=== PATIENT | female | born 1955 | race Caucasian/White ===

== ENCOUNTER 2016-06-01 10:06 | Inpatient (IN) | payer BC ==
[2016-05-13 09:40] VITALS: BMI 45.0
--- NOTE | 2016-05-27 23:27 | HISTORY & PHYSICAL EXAMINATION ---
DATE OF ADMISSION: 06/01/2016 CHIEF COMPLAINT: Right knee pain. HISTORY OF PRESENT ILLNESS: The patient is a 60-year-old female who is now about 7 months out from a left knee replacement, presents for surgical treatment of her right knee. She has a long history of bilateral knee pain, discomfort, and actually had her right knee scoped by Dr. Olguin on 2 separate occasions. Did give her some temporary relief. Noticed in the past 6 months she has developed increased pain and discomfort in her right knee since her left knee has been fixed. She has been through extensive conservative treatment including medicines and steroid and viscosupplementation without much relief. Pain is global. It is increased with weightbearing. She is happy with her left knee and would like to have her right knee replaced. PAST MEDICAL HISTORY: Includes: 1. Hypothyroidism. 2. Osteoarthritis. 3. Obesity with a BMI of 45. PAST SURGICAL HISTORY: Includes: 1. Left shoulder surgery. 2. Right knee arthroscopy x2, one in 2002 and one in 2007. 3. Left knee arthroscopy done in 2008. 4. Left total knee replacement done on 12/24/2015. ALLERGIES: None. CURRENT MEDICINES: Include: 1. Synthroid 50 mcg a day. 2. One-a-day multivitamin. 3. Vitamin C. 4. Calcium. 5. Vitamin B6. 6. Potassium. 7. Glucosamine/chondroitin. SOCIAL HISTORY: A 60-year-old female. She lives by herself. Does not smoke. FAMILY HISTORY: Noncontributory. REVIEW OF SYSTEMS: Negative for diabetes, neurologic problems, vascular problems, bleeding disorders. Denies any chest pain, no shortness of breath. No history of DVT or PE. PHYSICAL EXAMINATION: GENERAL: Reveals a healthy, pleasant middle-aged female. She looks to be in good health. HEENT: Benign. NECK: Supple, no lymphadenopathy. LUNGS: Clear to auscultation. HEART: Regular rate and rhythm. ABDOMEN: Soft, nontender, nondistended. EXTREMITIES: Grossly neurovascularly intact except as follows: Examination of the right knee reveals the patient ambulates independently. She does limp a little bit on the right side. She has got slight varus deformity. She is tender over the medial joint line. Small knee effusion. Range of motion 0-125. No instability. X-RAYS: X-rays of the right knee reviewed, showed advanced right knee medial compartment DJD. She has got near complete loss of her medial joint space. She has got osteophytes both medially and laterally. ASSESSMENT: A 60-year-old female, 7 months out from left knee replacement with advanced right knee degenerative joint disease. She has had this knee scoped twice. She has failed conservative care and would like to have her right knee replaced. PLAN: We will take her to the operating room and do right total knee replacement. The risks and benefits of this procedure were explained to the patient including but not limited to DVT, PE, , infection, neurological injury, vascular injury, bleeding problem, pain, limited range of motion, stiffness, failure to relieve symptoms, incomplete relief of symptoms, need for further surgery in the future, fracture, leg length inequality, nerve palsy, etc. The patient understands and desires to proceed. Informed consent was obtained. As far as discharge plans, she is planning to be discharged to home. Family is going to help her out similar to last time. I will see her back 2 weeks postop.
[~2016-06-01] VITALS: Ht 160 cm; Wt 119.5 kg
[2016-06-01] VITALS (7 sets, daily range): BP systolic 109–197; BP diastolic 69–113; PULSE 70–81; TEMP 36.4–36.9; O2SAT 94–100; Ht 160 cm; Wt 119.5 kg
[~2016-06-01 10:06] MED LIST: ACETAMINOPHEN 500 MG TAB PO SCH; ASCO500T87 PO; BUPIVACAINE 0.25% 30 ML VIAL ONE; BUPIVACAINE 0.5 % 5 MG/1 ML PF 10ML VIAL ONE; BUPIVACAINE LIPOSOME 266 MG, BUPIVACAINE/EPINEPHRINE INJ 50 ML, SODIUM CHLORIDE 0.9% PF... INFIL SCH; CEFAZOLIN 2000 MG/60 ML D5W 60 ML IV SCH; COEN1CAP28 PO; FAMOTIDINE 20 MG TAB PO SCH; GABAPENTIN 300 MG CAP PO SCH; GLUC1TAB19 PO; GLYCOPYRROLATE INJ 0.2 MG/ML VIAL ONE; GREEPOW2 PO; LACTATED RINGER'S 1000ML 1,000 ML IV SCH; LACTATED RINGER'S 1000ML IV SCH; LACTATED RINGER'S 500 ML IV SCH; LEVO50TA PO; METOCLOPRAMIDE HCL 10 MG TAB PO SCH; MULT-506 PO; NEOSTIGMINE METHYLSULFATE 1 MG/ML 10ML VIAL ONE; PROB1TAB16 PO; SCOPOLAMINE 1.5 MG TDSY TD SCH; TRANEXAMIC ACID INJ 1,000 MG in SODIUM CHLORIDE 0.9% 100ML 100 ML IV SCH
[2016-06-01] MEDS ORDERED: ATROPINE SULFATE 0.1 MG/ML 5ML SYR IV PRN (10:45)
[2016-06-01] MEDS ORDERED: HYDROmorphone INJ 1 MG/ML SYR IV PRN (10:45)
[2016-06-01] MEDS ORDERED: EpHEDrine SULFATE INJ 50 MG/ML AMP IV PRN (10:45)
[2016-06-01] MEDS ORDERED: ONDANSETRON INJ 2 MG/ML 2 ML VIAL IV PRN ×2 (10:45→16:00)
[2016-06-01] MEDS ORDERED: LABETALOL HCL IV 5 MG/ML 20ML IV PRN (10:45)
[2016-06-01] MEDS ORDERED: MEPERIDINE HCL 25 MG/ML CARP IV PRN (10:45)
[2016-06-01] MEDS ORDERED: FENTANYL CITRATE INJ 50 MCG/1 ML 2 ML VIAL IV PRN (10:45)
--- NOTE | 2016-06-01 11:29 | History & Physical Bridge Note ---
H&P Re-Evaluation Bridge Note: I have examined the patient, reviewed the History & Physical and in the interval since the performance of the History & Physical I have noted the following changes of clinical significance: No changes noted
[2016-06-01] MEDS ORDERED: PROPOFOL IV EMULSION 10 MG/ML 20 ML VIAL IV ONE (12:56)
[2016-06-01] MEDS ORDERED: LIDOCAINE HCL 2% 2 ML VIAL (20MG/ML) ONE (12:56)
[2016-06-01] MEDS ORDERED: MIDAZOLAM HCL 1 MG/ML 2ML VIAL ONE ×3 (13:50→15:26)
[2016-06-01] MEDS ORDERED: FENTANYL CITRATE INJ 50 MCG/1 ML 2 ML VIAL ONE (14:39)
[2016-06-01] MEDS ORDERED: PHENYLEPHRINE 100MCG/ML 5ML SYR ONE (15:07)
[2016-06-01] MEDS ORDERED: BACITRACIN 50000 UNIT VIAL IR ONE (15:28)
--- NOTE | 2016-06-01 15:51 | [facility] Post Operative Brief Note ---
Immediate Operative Summary Operative Date Jun 01, 2016. Pre-Operative Diagnosis Right knee degenerative joint disease Post-Operative Diagnosis Right knee degenerative joint disease Procedure(s) Performed Right total knee arthroplasty Surgeon Dr. Danielito Frankel Hims Manager Surgeon(s) Pepe Gutierrez PA-C Estimated Blood Loss 50ml Findings Right Knee DJD Fluids (cc crystalloids) 1500 cc Specimens A. Right knee bone and tissue Drains None Anesthesia Spinal Complication(s) None Disposition Recovery Room / PACU
[2016-06-01] MEDS ORDERED: SILVER SULFADIAZINE 1% CR 50 GM JAR EXT PRN (16:00)
[2016-06-01] MEDS ORDERED: BISACODYL 10 MG SUPP PR PRN (16:00)
[2016-06-01] MEDS ORDERED: METOCLOPRAMIDE HCL INJ 5 MG/ML 2 ML VIAL IV PRN (16:00)
[2016-06-01] MEDS ORDERED: DiphenhydrAMINE HCL 50 MG/ML VIAL IV PRN (16:00)
[2016-06-01] MEDS ORDERED: MoRPHine SULFATE 2 MG/ML CARP IV PRN (16:00)
[2016-06-01] MEDS ORDERED: ALUMINUM/MAGNESIUM/SIMETH (MAALOX MAX) 30 ML UDC PO PRN (16:00)
[2016-06-01] MEDS ORDERED: MAGNESIUM HYDROXIDE SUSP 30 ML UDC PO PRN (16:00)
[2016-06-01] MEDS ORDERED: ZOLPIDEM TARTRATE 5 MG TAB PO PRN (16:00)
--- NOTE | 2016-06-01 16:40 | Anesthesiology Progress Note ---
Anesthesia Post Op Note Date & Time Jun 01, 2016 at 16:39 Vital Signs Pain Intensity: 0 Vital Signs Past 12 Hours Date Time Temp Pulse Resp B/P Pulse Ox O2 Delivery O2 Flow Rate FiO2 06/01/16 16:25 83 16 120/66 100 Nasal Cannula 2 06/01/16 16:15 86 16 113/72 100 Nasal Cannula 2 06/01/16 16:05 77 16 114/66 100 Nasal Cannula 2 06/01/16 15:58 36.5 85 16 120/64 97 Nasal Cannula 2 06/01/16 11:10 36.9 81 20 197/113 97 Room Air Notes Mental Status: alert / awake / arousable, participated in evaluation Pt Amnestic to Procedure: Yes Nausea / Vomiting: adequately controlled Pain: adequately controlled Airway Patency, RR, SpO2: stable & adequate BP & HR: stable & adequate Hydration State: stable & adequate Neuraxial Anesthesia: was administered Anesthetic Complications: no major complications apparent
--- NOTE | 2016-06-01 16:49 | DIAGNOSTIC IMAGING REPORT ---
TWO VIEWS RIGHT KNEE CLINICAL HISTORY: Postoperative examination. FINDINGS: AP and crosstable lateral portable views of the right knee are obtained. A right knee arthroplasty is in near anatomic alignment. There has been undersurface remodeling of the patella. No acute fracture is seen. There are expected postoperative changes around the knee including skin clips, soft tissue edema, and subcutaneous gas. IMPRESSION: Expected postoperative changes status post right knee arthroplasty. No acute fracture is seen. Electronically signed by: Deandre Jeff M.D. 06/01/2016 4:48 PM Dictated Date/Time: 06/01/2016 4:48 PM
[2016-06-01] MEDS: OXYCODONE HCL IR 5 MG TAB (IMMEDIATE RELEASE) PO PRN (17:50)
[2016-06-01] MEDS: CHECK SCOPOLAMINE PATCH PLACEMENT SCH ×2 (18:18→23:31)
[2016-06-01] MEDS: D5W AND 1/2NSS + 20MEQ KCL 1,000 ML IV SCH (20:15)
[2016-06-01] MEDS ORDERED: COENZYME Q10 PO SCH (21:00)
[2016-06-01] MEDS: ASPIRIN 325 MG ECTAB PO SCH (21:00)
[2016-06-01] MEDS: DOCUSATE SODIUM 100 MG CAP PO SCH (21:01)
[2016-06-01] MEDS: FERROUS GLUCONATE 324 MG TAB PO SCH (21:01)
[2016-06-01] MEDS: TAPENTADOL ER 50 MG TABCR PO SCH (21:01)
[2016-06-01] MEDS ORDERED: TRANEXAMIC ACID INJ 1,000 MG in SODIUM CHLORIDE 0.9% 100ML 100 ML IV SCH (22:00)
[2016-06-01] MEDS: CEFAZOLIN IV 2,000 MG in DEXTROSE 5% 50ML 50 ML IV SCH (22:12)
[2016-06-01] MEDS: ACETAMINOPHEN 500 MG TAB PO SCH (22:12)
[2016-06-01] MEDS: KETOROLAC TROMETHAMINE 30 MG/ML VIAL IV. SCH (22:18)
--- NOTE | 2016-06-01 23:36 | OPERATIVE REPORT ---
DATE OF OPERATION: 06/01/2016 SURGEON: Dr. Danielito Frankel. ACADEMIC DIRECTOR: JOSÉ Andrew. PREOPERATIVE DIAGNOSIS: Right knee degenerative joint disease. POSTOPERATIVE DIAGNOSIS: Same. PROCEDURE PERFORMED: Right cemented posterior stabilized total knee arthroplasty. COMPLICATIONS: None. ESTIMATED BLOOD LOSS: 50 mL FLUID REPLACEMENT: 1500 mL crystalloid fluid replacement. TOURNIQUET TIME: 54 minutes at 300 mmHg. ANESTHESIA: Spinal with adductor canal block. DRAINS: None. SPECIMENS: Right knee sent for pathology. OPERATIVE INDICATIONS: The patient is a 60-year-old female who has had a long history of knee pain and discomfort in both knees. She has undergone multiple knee arthroscopies in the past, done elsewhere. She underwent a left knee replacement 6 months ago and has done extremely well from this. She has continued to be debilitated by her right knee and elected to proceed with right total knee arthroplasty. OPERATIVE FINDINGS: Operative findings revealed advanced right knee DJD. She had grade 4 [id number] extensively in all 3 compartments. She had osteophytes in all 3 compartments. A large knee joint effusion. OPERATIVE IMPLANTS: Operative implants consisted of: 1. Biomet Vanguard size 65 right posterior stabilized femoral component. 2. Biomet size 67 tibial tray. 3. A 12 mm posterior stabilized polyethylene insert. 4. A 31 x 8 all-poly patella. OPERATIVE PROCEDURE: The patient was taken to the operating room, identified and placed on the operating table in supine position. All contact areas were appropriately padded. IV antibiotics were provided by anesthesia team. Spinal anesthetic and adductor canal block had been provided in the holding area. Bacon catheter was placed in a sterile fashion. Right thigh tourniquet was then placed and the right lower extremity was then prepped and draped in the usual sterile fashion. The right leg was elevated and exsanguinated with Esmarch and tourniquet was placed at 300 mmHg. An anterior approach to the right knee was then performed through a longitudinal incision centered over the patella. Sharp dissection was carried through the subcutaneous tissues down to the level of the extensor mechanism. A medial parapatellar arthrotomy incision was made. Some subperiosteal dissection was carried out medially. The fat pad was resected from beneath the patellar tendon. The lateral patellofemoral ligament was released. I did elect to cut the patella first as it was fairly bony with a lot of osteophytes and kind of got in the way. I cleaned the patella off all soft tissues. Patellar thickness measured 22 mm and was cut down to 14. It was sized to a size 31 patella. I did remove the lateral osteophyte but I did not prepare the patella at this point. Patella was then subluxated laterally. The knee was flexed. The osteophytes were taken off the distal femur. The ACL was absent. The PCL was released from distal femur and the tibia subluxated anteriorly. The external tibial alignment jig was then placed in the interspace of the tibia and adjusted 14 mm medially. A proximal tibial cut was made to remove about 2 mm of bone from the most deficient aspect in the medial tibial plateau. The tibia was then sized to a size 67. Attention was then drawn to the femur. The distal femur was entered with a sharp drill bit, the intramedullary canal was suctioned. A right 5-degree valgus cutting guide was placed. Distal femoral cutting block was pinned in place. Distal femoral cut was made to take an additional 3 mm of bone off the distal femur. The femur was then sized to a size 65. We did downsize this slightly. The AP cutting block was pinned parallel to the epicondylar axis which was 5 degrees of external rotation. The anterior cut, anterior chamfer, posterior cut, posterior chamfer cuts were made. The box cutting guide was placed and adjusted slightly lateral and the box cut was made. The knee was flexed. The remnants of the medial and lateral menisci were excised. The osteophytes were taken off the posterior aspect of the femur. Trial femoral component was placed. The tibial tray was pinned in maximum external rotation, and drill and stem punch were used to create defect in the proximal tibia for the tibial tray. The knee was then trialed and the 12 mm insert fit most appropriately. Attention was then drawn back to the patella. The patella was now prepared with the size 31 patella template. The patella button was placed. Knee was taken through range of motion and the patella tracked nicely with no thumbs test. Attention was then drawn toward placement of permanent components. All trial components were removed. A bone plug was placed in the distal femur to limit blood loss. The wound was irrigated with copious amounts of pulsatile lavage solution. Double batch of Palacos G cement was mixed. A right size 65 posterior stabilized femoral component, size 67 tibial tray, a 12 mm posterior stabilized polyethylene insert, and a 31 x 8 all-poly patella were then cemented in place. The knee was brought out into full extension until cement hardened. A final cement check was then performed. Pericapsular tissues were then injected with 100 mL of a combination of 20 mL of Exparel, 30 mL of normal saline, 50 mL of 0.25% Marcaine with epinephrine. The patient did receive 1 gram of tranexamic acid. The tourniquet was then let down for a tourniquet time of 54 minutes. Hemostasis was assured with the use of electrocautery. The extensor mechanism was then closed with a combination of #1 PDS suture and #1 Vicryl suture in a [id number] fashion. Extensor mechanism was checked and found to be intact. The subcutaneous tissues were then closed with 2-0 Dexon suture in a buried interrupted fashion. Skin was closed with skin carlos. The leg was then cleaned and dried and a sterile dressing with Xeroform, 4 x 4, sterile cast padding and an Noe bandage were applied. The patient was then transferred to the recovery room in stable condition. The patient tolerated the procedure well with no complications. All needle and sponge counts were correct at the end of the operation. I attest to the content of the Intraoperative Record and any orders documented therein. Any exceptions are noted below. KAROL
[2016-06-02] VITALS (7 sets, daily range): BP systolic 113–162; BP diastolic 70–90; PULSE 67–79; TEMP 36.6–37.1; O2SAT 93–95
[2016-06-02] MEDS: D5W AND 1/2NSS + 20MEQ KCL 1,000 ML IV SCH ×3 (02:08→15:45)
[2016-06-02] MEDS: KETOROLAC TROMETHAMINE 30 MG/ML VIAL IV. SCH ×4 (03:29→22:23)
[2016-06-02] MEDS: CEFAZOLIN IV 2,000 MG in DEXTROSE 5% 50ML 50 ML IV SCH (05:41)
[2016-06-02] MEDS: ACETAMINOPHEN 500 MG TAB PO SCH ×3 (05:41→21:49)
[2016-06-02] MEDS: LEVOTHYROXINE 50 MCG TAB PO SCH (05:41)
[2016-06-02 05:51] LABS: HEMATOCRIT 33.8 % (37-47); MEAN CELL VOLUME 97.7 fL (80-100); MEAN CORPUSCULAR HEMOGLOBIN 32.7 pg (25-34); MEAN CORPUSCULAR HGB CONC 33.4 g/dl (32-36); MEAN PLATELET VOLUME 10.1 fL (7.4-10.4); PLATELET COUNT 193 K/uL (130-400); RED BLOOD COUNT 3.46 M/uL (4.2-5.4); WHITE BLOOD COUNT 8.32 K/uL (4.8-10.8)
[2016-06-02] MEDS ORDERED: CEFAZOLIN 2000 MG/60 ML D5W IV SCH (06:00)
[2016-06-02 06:14] LABS: BUN/CREATININE RATIO 8.6 (10-20); CREATININE 0.84 mg/dl (0.60-1.20); POTASSIUM 4.1 mmol/L (3.5-5.1)
[2016-06-02] MEDS: FERROUS GLUCONATE 324 MG TAB PO SCH ×3 (08:31→18:00)
[2016-06-02] MEDS: CHECK SCOPOLAMINE PATCH PLACEMENT SCH ×2 (08:31→16:00)
[2016-06-02] MEDS: ASPIRIN 325 MG ECTAB PO SCH ×2 (08:32→21:48)
[2016-06-02] MEDS: DOCUSATE SODIUM 100 MG CAP PO SCH ×2 (08:32→21:48)
[2016-06-02] MEDS: TAPENTADOL ER 50 MG TABCR PO SCH ×2 (08:33→21:51)
[2016-06-02] MEDS: PANTOprazole SOD 40 MG TAB PO SCH (08:33)
[2016-06-02] MEDS: MULTIVITAMIN TAB PO SCH (08:33)
[2016-06-02] MEDS: ASCORBIC ACID 500 MG TAB PO SCH (08:34)
[2016-06-02] MEDS ORDERED: MULTIVITAMIN TAB PO SCH (09:00)
[2016-06-02] MEDS ORDERED: NON-FORMULARY MEDICATION (Probiotic Product (Probiotic) 1 TAB) PO SCH (09:00)
[2016-06-02] MEDS: OXYCODONE HCL IR 5 MG TAB (IMMEDIATE RELEASE) PO PRN (10:42)
[2016-06-02] MEDS ORDERED: MORP15TA19 PO (12:02)
[2016-06-02] MEDS ORDERED: RXC5 PO (12:02)
[2016-06-02] MEDS ORDERED: ACET-1138 PO (12:02)
[2016-06-02] MEDS ORDERED: ASPEC325 PO (12:02)
--- NOTE | 2016-06-02 12:04 | Discharge Instructions ---
Discharge Instructions Admission Reason for Admission: Right Knee Pain, Osteoarthritis Discharge Discharge Diagnosis / Problem: Right Knee Replacement Discharge Goals Goal(s): Decrease discomfort, Improve function, Increase independence, Improve disease control, Therapeutic intervention Activity Recommendations Activity Limitations: per Instructions/Follow-up section Weightbearing Status: Right weightbearing . Instructions / Follow-Up Instructions / Follow-Up ACTIVITY RECOMMENDATIONS: Physical Therapy: * You will go to physical therapy three times each week for four to six weeks after your surgery in order to regain your knee range of motion and to retrain your knee to work properly. * It is just as important to make sure you are getting your knee perfectly straight as it is to regain your knee bend. * Taking a pain pill an hour before therapy can help you have a more productive and comfortable therapy session. Home Exercise: * You were shown a series of exercises (heel props, heel slides, etc.) in the hospital. Do these exercises three to four times each day including the exercises you were shown in physical therapy. Walking: * Get up and walk several times each day. For the first four weeks, try not to stand or walk for more than one hour at a time. If you do stand or walk for more than one hour, you will not hurt anything, but your knee and leg will likely swell. * As you feel comfortable, you may change from the walker or crutches to a cane and then to independent walking. MEDICATIONS: New Medicine: * You will likely be taking one or more of these medications: 1. MS Contin - A long-acting pain medication. Take 1 tablet twice a day for the first ten days to decrease your baseline level of pain. 2. Oxycodone - A quick and shorter-acting pain medication. Take one to two tablets every four to six hours to lessen your pain. 3. Aspirin - Thins your blood to lessen the chance of forming a blood clot. * The most common side effects of pain medicine and iron are nausea and constipation. If nausea or constipation is too much of a problem or if you have any questions about your new medicines or doses, call [facility] at . We will try to help you manage these issues. VERY IMPORTANT TO READ AND REVIEW" Pain: * The immediate post-operative period after knee replacement surgery is often quite painful. * You are given a prescription for pain medicine. You should take it, as directed, when you need it, especially before physical therapy and before going to bed. Pain that interferes with sleep is very common and can last several months. * You will likely need pain medicine for the first four to six weeks. It will not stop all of the pain. The pain will lessen and as you feel better, you may change to milder pain medicine such as Tylenol. * The most common side effects of pain medicine are nausea and constipation, so don't take more than you need. SPECIAL CARE INSTRUCTIONS: TEDs/Elastic Stockings: * The white elastic stockings help limit swelling and prevent blood clots from forming in your legs. The more you wear them, the more they work. * Wear them for six weeks after knee replacement surgery and four weeks after partial knee replacement. Prevention of Infection: * Take antibiotics one hour before any dental cleaning, dental work, urological procedure, gastrointestinal procedure or any invasive surgery in order to prevent your new joint from getting infected. * You may get the antibiotics from the doctor performing the procedure or you may call our office at before and we will call in a prescription to the pharmacy of your choice. Things to Watch For: * Drainage from the incision site that occurs more than one week after your surgery. * Severely increased knee/leg pain or swelling. * Increased redness at the incision site. * Fever above 102 degrees Fahrenheit. * Unusual chest pain or shortness of breath. * Unusual pain or burning with urination. Call [facility] at with any of the above problems or if you have any questions about your medicines or recovery. FOLLOW UP VISIT: Make an appointment to see your doctor for approximately two weeks after surgery for a progress check and staple removal by calling the office at . Current Hospital Diet Patient's current hospital diet: Regular Diet Discharge Diet Recommended Diet: Regular Diet Procedures Procedures Performed: Right total knee arthroplasty Pending Studies Studies pending at discharge: no Medical Emergencies . Who to Call and When: Medical Emergencies: If at any time you feel your situation is an emergency, please call [phone] immediately. . Non-Emergent Contact Non-Emergency issues call your: Surgeon . "Provider Documentation" section prepared by Danielito Frankel. VTE Core Measure Inpt VTE Proph given/why not?: Other Anticoagulation, T.E.D. Stockings, SCD's
--- NOTE | 2016-06-02 12:40 | PROGRESS NOTE ---
DATE: 06/02/2016 SUBJECTIVE: A 60-year-old white female postop day 1 from right knee replacement. She is doing pretty well. Pain is controlled. No chest pain or shortness of breath. Not feeling dizzy or lightheaded. OBJECTIVE: VITAL SIGNS: Temperature 37.1. Vital signs stable. GENERAL: Alert, pleasant, middle-aged female. She is sitting up in bed, looks pretty comfortable. LUNGS: Clear to auscultation. HEART: Regular rate and rhythm. ABDOMEN: Soft, nontender, nondistended. EXTREMITIES: Grossly neurovascularly intact except as follows: Examination of right lower extremity reveals the leg to be well aligned. Dressing is clean, dry and intact. She can dorsiflex and plantarflex her foot appropriately. She is neurologically intact. LABS: Hemoglobin 11.3, hematocrit 33.8. Electrolytes are stable. ASSESSMENT: A 60-year-old white female postop day 1 from right knee replacement, doing pretty well. Pain is controlled. PLAN: 1. DVT prophylaxis including thigh-high TEDs, SCDs, and aspirin twice a day. 2. PT/OT. Weightbearing as tolerated. Right total knee protocol. 3. Pain controlled, doing pretty well with current pain regimen. 4. Disposition: She is going to be discharged to home. She has got family that is going to help her as she does live by herself.
--- NOTE | 2016-06-02 13:52 | Anesthesiology Progress Note ---
Anesthesia Post Op Note Date & Time Jun 02, 2016 at 13:52 Vital Signs Pain Intensity: 1.0 Vital Signs Past 12 Hours Date Time Temp Pulse Resp B/P Pulse Ox O2 Delivery O2 Flow Rate FiO2 06/02/16 11:45 37.1 76 16 162/85 95 Room Air 06/02/16 09:10 73 94 06/02/16 08:04 94 Room Air 06/02/16 07:58 36.6 67 16 119/79 94 Room Air 06/02/16 07:30 Room Air 06/02/16 03:44 36.6 67 16 113/72 95 Room Air Notes Mental Status: alert / awake / arousable, participated in evaluation Pt Amnestic to Procedure: Yes Nausea / Vomiting: adequately controlled Pain: adequately controlled Airway Patency, RR, SpO2: stable & adequate BP & HR: stable & adequate Hydration State: stable & adequate Neuraxial Anesthesia: sensory block resolved Anesthetic Complications: no major complications apparent
[2016-06-03] MEDS: CHECK SCOPOLAMINE PATCH PLACEMENT SCH ×2 (00:03→08:12)
[2016-06-03] MEDS: KETOROLAC TROMETHAMINE 30 MG/ML VIAL IV. SCH ×2 (04:06→10:53)
[2016-06-03 05:42] VITALS: BP 130/82; PULSE 77; TEMP 36.8; O2SAT 93
[2016-06-03] MEDS: LEVOTHYROXINE 50 MCG TAB PO SCH (06:09)
[2016-06-03] MEDS: ACETAMINOPHEN 500 MG TAB PO SCH (06:09)
--- NOTE | 2016-06-03 07:34 | PROGRESS NOTE ---
DATE: 06/03/2016 SUBJECTIVE: A 60-year-old female postop day 2 from right total knee replacement. She is doing pretty well. Her knee is pretty sore today. No chest pain or shortness of breath. Not feeling dizzy or lightheaded. OBJECTIVE: VITAL SIGNS: Temperature 36.8. Vital signs stable. PHYSICAL EXAMINATION: GENERAL: Reveals a healthy pleasant, middle-aged female. She is sitting up in bed, looks pretty comfortable. LUNGS: Clear to auscultation. HEART: Regular rate and rhythm. ABDOMEN: Soft, nontender, nondistended. EXTREMITIES: Grossly neurovascularly intact except as follows: Examination of right lower extremity reveals just a trace bit of bloody drainage on the dressing. Leg is well aligned. She can dorsiflex and plantarflex her foot appropriately. She is neurologically intact. ASSESSMENT: A 60-year-old female postop day 2 from right total knee replacement, doing pretty well. Knee is sore but that is to be expected. Pain is otherwise pretty well controlled. PLAN: 1. DVT prophylaxis including thigh-high TEDs, SCDs, and aspirin twice a day. 2. PT/OT. Weightbearing as tolerated. Right total knee protocol. 3. Pain control, doing pretty well with current pain regimen. 4. Disposition: She is planning to be discharged to home. She has got family that can help her.
[2016-06-03] MEDS: TAPENTADOL ER 50 MG TABCR PO SCH (08:07)
[2016-06-03] MEDS: FERROUS GLUCONATE 324 MG TAB PO SCH ×2 (08:08→12:29)
[2016-06-03] MEDS: DOCUSATE SODIUM 100 MG CAP PO SCH (08:08)
[2016-06-03] MEDS: ASPIRIN 325 MG ECTAB PO SCH (08:08)
[2016-06-03] MEDS: PANTOprazole SOD 40 MG TAB PO SCH (08:09)
[2016-06-03] MEDS: MULTIVITAMIN TAB PO SCH (08:09)
[2016-06-03] MEDS: ASCORBIC ACID 500 MG TAB PO SCH (08:10)
[2016-06-03 11:04] VITALS: BP 130/82; PULSE 77; TEMP 36.8; O2SAT 93
[2016-06-03] MEDS: OXYCODONE HCL IR 5 MG TAB (IMMEDIATE RELEASE) PO PRN (12:29)
--- NOTE | 2016-06-08 14:29 | DISCHARGE SUMMARY ---
ADMITTING PHYSICIAN AND SURGEON: Dr. Frankel. ADMITTING DIAGNOSIS: Right knee degenerative joint disease. SURGERY PERFORMED: Right total knee arthroplasty. SECONDARY DIAGNOSES: Hypothyroidism, osteoarthritis, obesity. CONSULTS: None obtained. HISTORY AND PHYSICAL EXAMINATION: Well documented in the patient's chart. HOSPITAL COURSE: The patient was admitted on 06/01/2016 underwent total knee arthroplasty, tolerated the procedure well. There were no complications. She was transferred to the PACU postoperatively and later to the orthopedic floor for further care. She was given Ancef for antibiotic prophylaxis, ANTONIETTA stockings, SCDs and aspirin for DVT prophylaxis. Hemoglobin, hematocrit and vital signs were monitored during her hospital stay and remained stable. She developed some mild postoperative anemia, did not require any blood transfusions. There were no complications. By postoperative day 2, she was tolerating a general diet, pain was controlled with oral pain medicine. She was participating in physical therapy and had no signs or symptoms of deep vein thrombosis. On postop day 2, she was discharged home in good condition. Given printed discharge instructions including extra strength Tylenol, aspirin 325 mg b.i.d., MS Contin and oxycodone. Continue her home medicines. Continue physical therapy, weightbearing as tolerated and ANTONIETTA stockings. Follow up in 10-12 days or sooner if there are any problems or concerns.
== END 2016-06-03 13:26 | disposition home or self-care (01) | DRG 470 ==
LOC: ENRESERVTM → ENRESERVDT → C.ACU 10:06 → C.3E 12:00
PROVIDERS: ADMIT Orthopaedic Surgery Sports Medicine; ATTEND Orthopaedic Surgery Sports Medicine
PROC: 0SRC0J9 Replacement of Right Knee Joint with Synthetic Substitute, Cemented, Open Approach (ICD-10-PCS; principal; 2016-06-01 12:30)
DX: M17.11 Unilateral primary osteoarthritis, right knee (principal); Z68.42 Body mass index [BMI] 45.0-49.9, adult; E03.9 Hypothyroidism, unspecified; E66.9 Obesity, unspecified; Z96.652 Presence of left artificial knee joint; Z79.899 Other long term (current) drug therapy

== ENCOUNTER 2024-02-21 05:03 | Observation (INO) ==
--- NOTE | 2024-01-23 16:17 | PAT Medication Instructions ---
Medication Instructions Date of Service January 23, 2024 Home Medications lactobacillus combination no.8 3 billion cell capsule (Adult Probiotic) 3,000 mmu cells PO DAILY ascorbic acid (vitamin C) 1,000 mg tablet 5 g PO DAILY multivitamin (Daily Multi-Vitamin tablet) 1 tab PO DAILY amoxicillin 500 mg tablet 2,000 mg PO UD PRN levothyroxine 50 mcg tablet (Synthroid) 50 mcg PO QAM Continue as directed amoxicillin 500 mg tablet 2,000 mg PO UD PRN(if needed) DO NOT take the morning of surgery lactobacillus combination no.8 3 billion cell capsule (Adult Probiotic) 3,000 mmu cells PO DAILY ascorbic acid (vitamin C) 1,000 mg tablet 5 g PO DAILY multivitamin (Daily Multi-Vitamin tablet) 1 tab PO DAILY Take morning of surgery With a small sip of water, OTHERWISE NOTHING TO EAT OR DRINK AFTER MIDNIGHT: levothyroxine 50 mcg tablet (Synthroid) 50 mcg PO QAM Other Notes If you have any questions please call us at [phone] or [phone] or [phone] or [phone]
--- NOTE | 2024-02-01 08:37 | Anesthesiology Consultation ---
Date of Service February 01, 2024 Assessment & Plan (1) Encounter for pre-operative examination: - anesthesia notation: patient reports mild-moderate tenderness in area of neuraxial anesthesia 1 week after a TKA in the past (she can't recall which TKA, notes she did well with the other)-states it then fully resolved. She states she is amenable to either neuraxial or general anesthesia to discussion with anesthesiologist JESUS. - Outpatient joint assessment: Patient is currently scheduled for inpatient pathway. If re-evaluated and patient/surgeon requests outpatient pathway, patient is not recommended candidate for outpatient joint program from anesthesia standpoint. Chart Review Chart Review: Acceptable Risk for Surgery and Patient seen in Pre Admission Testing Teaching & Discussion Pre-Anesthesia Teaching/Discussion Notes: Instructed NPO after midnight before surgery, except medications with 15 cc of water. Medication instructions provided according to the PAT guidelines. History Surgery Operation Date: 02/21/24 12:30 Proposed Procedures p Left Total Hip Arthroplasty - Danielito Frankel MD Height/Weight Height: 5 ft 3 in Weight: 103.8 kg Allergies Allergy/AdvReac Type Severity Reaction Status Date / Time cat dander Allergy Unknown HAY FEVER Verified 01/19/24 09:47 dog dander Allergy Unknown HAY FEVER Verified 01/19/24 09:47 grass pollen-perennial rye, Allergy Unknown HAY FEVER Verified 01/19/24 09:47 standar mold Allergy Unknown HAY FEVER Verified 01/19/24 09:47 No Known Drug Allergies Allergy Unknown NKDA Verified 01/19/24 09:47 house dust mite AdvReac Mild Verified 01/19/24 09:47 Careless [place] Allergy Unknown HAY FEVER Uncoded 01/19/24 09:47 Dust Allergy Unknown HAY FEVER Uncoded 01/19/24 09:47 Medications Home Medications Medication Instructions Recorded Confirmed Last Taken lactobacillus combination no.8 3 3,000 mmu cells PO DAILY 01/08/19 01/19/24 Unknown billion cell capsule (Adult Probiotic) ascorbic acid (vitamin C) 1,000 mg 5 g PO DAILY 11/23/22 01/19/24 Unknown tablet multivitamin (Daily Multi-Vitamin 1 tab PO DAILY 11/23/22 01/19/24 Unknown tablet) amoxicillin 500 mg tablet 2,000 mg PO UD PRN dental 01/19/24 01/19/24 Unknown procedures levothyroxine 50 mcg tablet 50 mcg PO QAM 01/19/24 01/19/24 Unknown (Synthroid) Past Medical History Medical History Hx of bronchitis "seems to be susceptible to this, but most recent was in 2022" Hx of hypercholesterolemia Hypothyroidism Lumbar degenerative disc disease with bone spurs reported by patient Lumbar spondylosis BROWN (nonalcoholic steatohepatitis) "still in normal range, has not had to see the specialist in over a year" Prediabetes Patient denies h/o stroke, seizures, heart attack, heart failure, HTN, blood clots/DVTs or blood transfusions. Exercise / Class Metabolic Activity III < 4 Walking/Shop/Light housework (denies chest discomfort or shortness of breath with usual activities) Past Family History Family History Mother Diabetes Alzheimer disease Hyperlipidemia Hypertension Sister Diabetes Hypertension Hyperlipidemia Sister Sudden , Onset Age: 43 Father Heart problem Denies family history of Ovarian cancer Prostate cancer Coronary heart disease Myocardial infarction Breast cancer Colorectal cancer Past Surgical History Surgical History History of arthroscopy of left shoulder History of total left knee replacement History of total right knee replacement Hx of arthroscopy of knee x2 right, x1 left Past Anesthesia History No Hx of Anesthesia Complications and No Family Hx of Anesthesia Complications History of PONV No Hx of PONV and No Hx of Motion Sickness Social History Smoking Status: Never smoker Do You Dip or Chew Tobacco: No Hx Alcohol Use: No Hx Substance Use: No substance use type: does not use Review of Systems Patient denies chest pain, shortness of breath, dyspnea on exertion, snoring, witnessed apneas, reflux, fever, chills, cough, wheezing, or palpitations. Physical Exam Vital Signs Vitals BP 139/83 P 59 TEMP 98.0 SP02 94% on RA RESP 18 Physical Patient resting comfortably in chair in no acute distress, alert and oriented, responding appropriately throughout visit Full cervical extension range of motion without pain TMD 3.5 finger breadths Mallampati Score 2 Dentition: one bridge and crown, denies chipped or loose teeth, caps/crowns, or implants Lungs: normal respiratory effort. Good air movement, clear throughout to auscultation, no adventitious breath sounds Cardiac: regular rate and rhythm, no murmurs noted Carotid arteries: negative bruit bilat Lab Results Anesthesia Preop Results Results Anesthesia Widget: WBC 5.18 K/ul (4.8-10.8) 02/01/24 Hgb 14.5 g/dl (12.0-16.0) 02/01/24 Hct 42.6 % (37.0-47.0) 02/01/24 Plt 248 K/uL (130-400) 02/01/24 Na 140 mmol/L (136-145) 02/01/24 K 4.3 mmol/L (3.5-5.1) 02/01/24 Cl 106 mmol/L (98-107) 02/01/24 CO2 26 mmol/L (21-32) 02/01/24 BUN 11 mg/dl (6-23) 02/01/24 Creat 0.78 mg/dl (0.6-1.2) 02/01/24 Glucose Level 106 mg/dl (70-99(Fasting)) H 02/01/24 PT 10.9 Seconds (9.0-12.0) 02/01/24 PTT 27 Seconds (21-31) 02/01/24 INR 1.0 (0.9-1.1) 02/01/24 TSH 2.472 uIu/ml (0.300-4.500) 12/12/23 HA1c 6.2 % (4.5-5.6) H 12/12/23 Urine Color Yellow 12/12/23 Urine Appearance Clear (Clear) 12/12/23 Urine pH 6.0 (4.5-7.5) 12/12/23 Urine Specific [place] 1.014 (1.000-1.030) 12/12/23 Urine Protein Negative (Negative) 12/12/23 Urine Glucose (UA) Negative (Negative) 12/12/23 Urine Ketones Negative (Negative) 12/12/23 Urine Blood Negative (Negative) 12/12/23 Urine Nitrite Negative (Negative) 12/12/23 Urine Bilirubin Negative (Negative) 12/12/23 Urine Urobilinogen Negative (Negative) 12/12/23 Urine Leukocyte Esterase Negative (Negative) 12/12/23 Blood Type A Positive 02/01/24 Antibody Screen NEGATIVE 02/01/24 Testing Electrocardiogram Date: 02/01/24 Sinus bradycardia with marked sinus arrhthymia, rate 56 bpm Chest X-Ray Date: 02/01/24 No acute cardiopulmonary findings.
--- NOTE | 2024-02-13 19:24 | History & Physical Report ---
Date of Service February 13, 2024 Assessment & Plan (1) Arthritis of left hip: 68-year-old female with a history of bilateral knee replacements in the past with left hip pain consistent with progressive arthritis as well as lumbar spondylosis. I think she is having pain from both the hip and her back. The MRI is pretty impressive and she just like to have her left hip fixed. Not interested in any injection treatment. Plan: Orgran to proceed with failure of left total hip replacement. There is cements this procedure were explained. I did tell this may not treat all of her pain. She is hoping to be discharged to home using home health. She will get family to assist in her care. DVT prophylaxis will be thigh-high teds, SCDs, aspirin twice a day. (2) History of bilateral knee replacement: (3) Hypothyroidism: (4) Hypercholesterolemia: (5) Lumbar degenerative disc disease: History of Present Illness Chief Complaint: . Persistent and progressive left hip pain and discomfort. Primary Care Provider: Anders Severino MD . The patient is a 5-year-old female well-known to me from previous bilateral knee replacements done about 7 years ago. They were done about 8 months apart. She is done pretty well from this. Over the past year she developed increased pain discomfort left hip and groin area. She was referred to pain clinic. They did an MRI of the hip which shows significant arthritis. She now presents was for surgical treatment. Scribes groin pain thigh pain. She is actually resorted to using a cane for the past several months. She also has some buttock pain. She limps more as the day goes on. She just like to get her hip fixed. She does have some back pain. No radicular symptoms. Allergies Allergy/AdvReac Type Severity Reaction Status Date / Time cat dander Allergy Unknown HAY FEVER Verified 01/19/24 09:47 dog dander Allergy Unknown HAY FEVER Verified 01/19/24 09:47 grass pollen-perennial rye, Allergy Unknown HAY FEVER Verified 01/19/24 09:47 standar mold Allergy Unknown HAY FEVER Verified 01/19/24 09:47 No Known Drug Allergies Allergy Unknown NKDA Verified 01/19/24 09:47 house dust mite AdvReac Mild Verified 01/19/24 09:47 Careless [place] Allergy Unknown HAY FEVER Uncoded 01/19/24 09:47 Dust Allergy Unknown HAY FEVER Uncoded 01/19/24 09:47 Home Medications Medication Instructions Recorded Confirmed Type lactobacillus combination no.8 3 3,000 mmu cells PO DAILY 01/08/19 01/19/24 History billion cell capsule (Adult Probiotic) ascorbic acid (vitamin C) 1,000 mg 5 g PO DAILY 11/23/22 01/19/24 History tablet multivitamin (Daily Multi-Vitamin 1 tab PO DAILY 11/23/22 01/19/24 History tablet) amoxicillin 500 mg tablet 2,000 mg PO UD PRN dental 01/19/24 01/19/24 History procedures levothyroxine 50 mcg tablet 50 mcg PO QAM 01/19/24 01/19/24 History (Synthroid) Past Med/Surg History Problem List (Updated 02/13/24 @ 19:22 by Danielito Frankel MD) Arthritis of left hip Encounter for pre-operative examination Lumbar degenerative disc disease Left hip pain BMI 45.0-49.9, adult Non-alcoholic fatty liver disease History of bilateral knee replacement Impaired fasting glucose (Chronic) Hypothyroidism (Chronic) Hypercholesterolemia (Chronic) Medical History Prediabetes Hx of hypercholesterolemia Hx of bronchitis "seems to be susceptible to this, but most recent was in 2022" Hypothyroidism Lumbar degenerative disc disease with bone spurs reported by patient BROWN (nonalcoholic steatohepatitis) "still in normal range, has not had to see the specialist in over a year" Lumbar spondylosis Surgical History History of total right knee replacement History of total left knee replacement Hx of arthroscopy of knee x2 right, x1 left History of arthroscopy of left shoulder Family History Mother Diabetes Alzheimer disease Hyperlipidemia Hypertension Sister Diabetes Hypertension Hyperlipidemia Sister Sudden , Onset Age: 43 Father Heart problem Denies family history of Ovarian cancer Prostate cancer Coronary heart disease Myocardial infarction Breast cancer Colorectal cancer Social History Smoking Status: Never smoker Second Hand Exposure: No; Do You Dip or Chew Tobacco: No; Tobacco Cessation Education Requested by Patient: No Hx Alcohol Use: No Hx Substance Use: No Preferred Language: Arabic Communication Ability: Effective Hearing Ability: Normal Lipcoat Sprayer Required: No Beliefs That Will Affect Care: None marital status: Single Current Living Situation: Alone Current Living Situation Comment: sister coming to stay w/pt after surgery current occupational status: retired Other Information That Helps Us Care for You: No Feels Safe at Home: Yes Safety Concerns: Feels Safe At This Time Childhood Exposure to Second-Hand Smoke: Yes Diet: regular caffeine: Yes during the past year weight has: remained stable Dental Care, Regularly: Yes Physical Activity Frequency: Daily Seatbelt Use: always Sunscreen Use: No Assistive Devices: Glasses Review of Systems All systems reviewed & are unremarkable except as noted in HPI & below. Physical Exam . Physical examination reveals a pleasant middle-age female. Looks to be in reasonably good health. Examination of left hip and leg reveal patient walks with use of a cane. She limps on the left side. Leg lengths appear pretty equal. She does have pain with any type of hip motion. Her motion is pretty decent with internal rotation to 10 degrees. This does recreate pain. Negative straight leg raise. She is neurologically intact. Constitutional WD/WN, vitals as above Neck trachea midline, no thyromegaly Respiratory normal respiratory effort, lungs clear to auscultation Cardiovascular RRR, no murmur, no edema Gastrointestinal (Abdomen) normal bowel sounds, soft, nontender, no hepatosplenomegaly Results & Data Results & Data Laboratory Results . Diagnostic Findings . X-rays of left hip were reviewed. It shows some moderate arthritis of the hip. She has probably about 50% joint space narrowing with weightbearing films. Not much osteophyte formation. MRI of the hip was also reviewed. It shows pretty significant arthritis in the hip. Quite a bit more advanced than what shows on plain x-ray. She got bone marrow edema. A little bit of bursitis. PG Care Time/CCT Total # of Minutes Spent Total Time Spent with Patient: Total time spent is greater than 50% in coordination of care (as documented) at patient's floor/unit and/or counseling patient: Coding Level of Care Code None Diagnoses Arthritis of left hip M16.12 History of bilateral knee replacement Z96.653 Hypothyroidism E03.9 Hypercholesterolemia E78.00 Lumbar degenerative disc disease M51.36
[2024-02-21] MEDS: LR 500ML BOLUS, THEN 15ML/HR IV SCH (05:57)
[2024-02-21] MEDS: ACETAMINOPHEN 500 MG TAB PO SCH ×2 (05:57→13:47)
[2024-02-21] MEDS: FAMOTIDINE 20 MG TAB PO SCH (05:57)
[2024-02-21] MEDS: METOCLOPRAMIDE HCL 10 MG TABLET PO SCH (05:57)
[2024-02-21] MEDS: CeleBREX 200 MG CAP PO SCH (05:57)
[2024-02-21] MEDS: LR 60ML/HR IV SCH (05:58)
[2024-02-21] MEDS ORDERED: BUPIVACAINE 0.5 % 5 MG/1 ML PF 10ML VIAL ONE (06:21)
[2024-02-21] MEDS ORDERED: fentaNYL citrate PF 100 MCG/2 ML VIAL ONE (06:40)
[2024-02-21] MEDS ORDERED: MIDAZOLAM HCL 1 MG/ML 2ML VIAL ONE (06:40)
--- NOTE | 2024-02-21 06:41 | History & Physical Bridge Note ---
Date of Service February 21, 2024 History & Physical Bridge Note I have examined the patient, reviewed the History & Physical and in the interval since the performance of the History & Physical I have noted the following changes of clinical significance: no changes noted
[2024-02-21] MEDS ORDERED: ATROPINE SULFATE 0.1 MG/ML 10ML SYR IV PRN (06:42)
[2024-02-21] MEDS ORDERED: ePHEDrine sulfate 50 MG/ML AMP IV PRN (06:42)
[2024-02-21] MEDS ORDERED: ONDANSETRON INJ 2 MG/ML 2 ML VIAL IV PRN ×2 (06:42→10:27)
[2024-02-21] MEDS: TRANEXAMIC ACID 1,000 MG **IV Pre-op IV SCH (06:44)
[2024-02-21] MEDS: ceFAZolin 2000MG 2,000 MG/15 ML SYR IV SCH ×2 (07:09→13:42)
[2024-02-21] MEDS ORDERED: PROPOFOL IV EMULSION 10 MG/ML 20 ML VIAL IV ONE (07:12)
[2024-02-21] MEDS ORDERED: PHENYLEPHRINE 100MCG/ML 10ML SYR IV ONE (07:12)
[2024-02-21] MEDS ORDERED: ePHEDrine sulfate 50 MG/5 ML SYR ONE (07:12)
[2024-02-21] MEDS: BUPIVACAINE/EPINEPHRINE 0.5% MPF 1:200,000 30 ML VIAL ONE (07:37)
--- NOTE | 2024-02-21 08:47 | Operative Report ---
PG Post Operative Report Pre & Post Diagnosis Operation Date: 02/21/24 07:00 Pre-Op Diagnosis: Left Hip Degenerative Joint Disease Post-Op Diagnosis: Left Hip Degenerative Joint Disease I identified the patient and participated in the time-out.: Yes Procedure Operation Date: 02/21/24 07:00 Actual Procedures p Left Total Hip Arthroplasty, Uncemented(Left) - Danielito Frankel MD Surgeon Danielito Frankel MD Cassandra Architect AMAN Gutierrez Estimated Blood Loss 150 Findings Consistent with Post-Op Diagnosis Operative findings revealed moderate left hip joint arthritis. She had significant chondral disease of the femoral head. Small hip joint effusion. Specimens Left femoral head sent for pathology. Anesthesia Type Spinal MAC Complications none Disposition Accompanied Patient To Recovery: No Indications The patient is a 68-year-old female status post bilateral knee replacements about 7 years ago. Over time she is developed increased pain discomfort her left hip. Been through extensive conservative management as well as evaluation. X-rays that showed some fairly mild hip arthritis. She is sent to the pain clinic and they ordered an MRI of the hip which showed more advanced hip arthritis. Treatment options are explained and she was fairly adamant about proceeding with hip replacement surgery. She did have significant arthritic change on her MRI more advanced than on the plain x-ray. Description of Procedure Operative implants consist of: 1. Biomet G7 size 50 mm acetabular shell. 2. 6.5 cancellous acetabular screws 135 mm in length and 125 mm length. 3. [place] hole water quality analyst. 4. Highly cross-linked polyethylene liner with 50 mm outer diameter and 36 mm inner diameter. 5. DePuy Corail size 12 KLA femoral stem. 6. +1.5/36 mm ceramic articular ball. The patient was taken to the operating, identified, placed on the operating table in the supine position. All contact areas were appropriately padded. IV antibiotics fibra anesthesia team. A spinal anesthetic had been implemented in the holding area. A Bacon catheter was placed in a sterile fashion. The patient was then placed in the right lateral decubitus position. An axillary roll was placed. A stool Birkett position was used for positioning. Left hip and leg were then prepped and draped in usual sterile fashion. A posterolateral approach to the left hip was then performed through a curvilinear incision centered over the greater trochanter. Sharp dissection Through subcutaneous tissue down to level the IT band gluteal fascia. She had a very thick soft tissue envelope. The IT band gluteal fascia were then incised longitudinally in line with skin incision. The underlying greater troches bursa was excised. The piriformis and external rotators along with the hip joint capsule were then released from the posterior aspect the hip as a single layer. Great care was taken throughout the procedure to protect the sciatic nerve at all times. Hip was internally rotated and dislocated. Femoral neck osteotomy cut was made with Final Cut 15 mm above the lesser trochanter. Femoral head was removed and sent for pathology. The femur was retracted anteriorly. Attention drawn the acetabulum. The acetabulum labrum was excised. The pulmonary fat was excised. Sequential reaming the acetabular exam performed again with size 43 and progressing up to 49. I reamed a little bit with a 50 reamer and then placed a 50 mm Biomet G7 acetabular shell in about 40 degrees lateral opening and 20 degrees of anteversion. It was fixed with two 6.5 screws. A trial liner was placed. Attention drawn the femur. The proximal femur was entered with cookie-cutter followed by canal finder. I then broached beginning the size 8 and progressed up to a 12. Got excellent fitted to 12. We trialed the hip. The +5 articular ball was fully stable but I was concerned about lengthening her leg as she seemed a little bit long on this leg he is start out with. We elected to use a +1.5 articular ball. She provided full stability to the hip and was stable. We elect to place his implants. All trial implants were removed. An apex hole water quality analyst was placed. Highly cross-linked polyethylene liner was placed. A size 12 KLA femoral stem was impacted in position. A +1.5/36 mm ceramic articular ball was placed. Hip was located once again found to be stable. Attention drawn toward closing. The wound was irrigated close muscle pulsatile lavage solution. I did inject locally with 60 cc of half percent Marcaine with epinephrine. The posterior capsule and external rotators then repaired through drill holes in the posterior trochanter with #2 Tycron suture. The IT band and gluteal fascia were then closed with #1 PDS suture running fashion the subcutaneous tissues then closed with 2 layers with a deep layer #2 Vicryl suture in the subcutaneous tissues with 2-0 Dexon suture in a buried interrupted fashion. Skin was closed with skin carlos. Leg was then cleaned and dried and a sterile Prevena VAC dressing was applied due to the very thick soft tissue envelope. The patient was then transferred to the recovery room in stable condition. The patient tolerated procedure well and there were no complications. Renaldo Gutierrez, my physician grants assistant, was present for the entire procedure. His assistance was essential and required for appropriate patient positioning, prepping and draping, surgical exposure, performing the technical details of the operation, placement the implants, closure of the wound, and placement of the sterile bandage. I attest to the content of the Intraoperative Record and any orders documented therein. Any exceptions are noted below.
[2024-02-21] MEDS: fentaNYL citrate PF 100 MCG/2 ML VIAL IV PRN (08:50)
[2024-02-21] MEDS: HYDROmorphone INJ 1 MG/ML SYRINGE IV PRN (09:15)
[2024-02-21] MEDS: HYDROmorphone INJ 1 MG/ML SYRINGE ONE (09:28)
[2024-02-21] MEDS ORDERED: MAGNESIUM HYDROXIDE SUSP 30 ML UDC PO PRN (10:27)
[2024-02-21] MEDS ORDERED: NALOXONE HCL 0.4 MG/1 ML VIAL/CARP IV PRN (10:27)
[2024-02-21] MEDS ORDERED: HYDROmorphone INJ 0.5 MG/0.5 ML SYR IV PRN (10:27)
[2024-02-21] MEDS ORDERED: METOCLOPRAMIDE HCL INJ 5 MG/ML 2 ML VIAL IV PRN (10:27)
[2024-02-21] MEDS ORDERED: NON-FORMULARY MEDICATION (Ascorbic Acid (Vitamin C) 1,000 mg tablet) PO SCH (10:27)
[2024-02-21] MEDS ORDERED: bisacodyL 10 MG SUPP PR PRN (10:27)
[2024-02-21] MEDS ORDERED: MULTIVITAMIN TAB PO SCH (10:27)
[2024-02-21] MEDS ORDERED: ALUMINUM/MAGNESIUM SUSP 30 ML UDC PO PRN (10:27)
[2024-02-21] MEDS: SODIUM CHLORIDE 0.9% 1,000 ML IV SCH (10:37)
--- NOTE | 2024-02-21 11:02 | Anesthesiology Progress Note ---
Date of Service February 21, 2024 Anesthesia Post Procedure Vital Signs Vital Signs: Temp Pulse Pulse Resp BP Pulse Ox O2 Del Method 02/21/24 10:57 36.3 C L 70 18 134/81 95 Room Air 02/21/24 10:20 36.3 C L 87 17 126/75 97 Room Air 02/21/24 10:05 36.3 C L 85 19 119/71 96 Room Air 02/21/24 09:55 86 18 128/68 94 Room Air 02/21/24 09:45 35.8 C L 96 H 20 123/71 99 Room Air 02/21/24 09:35 86 18 104/53 L 96 Room Air 02/21/24 09:25 89 13 114/60 97 Room Air 02/21/24 09:15 84 14 120/63 95 Room Air 02/21/24 09:05 83 14 131/69 99 Oxymask 02/21/24 08:55 79 21 134/66 97 Oxymask 02/21/24 08:45 81 14 122/76 98 Oxymask 02/21/24 08:36 36 C L 88 16 129/80 100 Oxymask 02/21/24 05:36 36.5 C 70 18 98 Room Air O2 Flow Rate 02/21/24 10:57 02/21/24 10:20 02/21/24 10:05 02/21/24 09:55 02/21/24 09:45 02/21/24 09:35 02/21/24 09:25 02/21/24 09:15 02/21/24 09:05 5 02/21/24 08:55 5 02/21/24 08:45 5 02/21/24 08:36 5 02/21/24 05:36 Pain Intensity Left Hip: Pain Intensity: 4 Transfer of Care Handoff Completed per policy Notes Mental Status: alert / awake / arousable Patient Amnestic to Procedure: Yes Nausea / Vomiting: adequately controlled Pain: adequately controlled Airway Patency, RR, SpO2: stable & adequate BP & HR: stable & adequate Hydration State: stable & adequate Neuraxial Anesthesia: was administered and sensory block is resolving Anesthetic Complications: no major complications apparent and Pt Satisfied with anesthetic care
[2024-02-21] MEDS: ASPIRIN 81 MG ECTAB PO SCH (11:59)
[2024-02-21] MEDS: LEVOTHYROXINE SODIUM 50 MCG TABLET PO SCH (11:59)
[2024-02-21] MEDS: MULTIVITAMIN TAB PO SCH (11:59)
[2024-02-21] MEDS: LACTOBACILLUS ACIDOPHILUS 1 GM PACK PO SCH (11:59)
[2024-02-21] MEDS: KETOROLAC TROMETHAMINE 15 MG/ML VIAL IV SCH (12:02)
[2024-02-21] MEDS: SENNA 8.6 MG TAB PO SCH ×2 (12:02→20:53)
[2024-02-21] MEDS: DOCUSATE SODIUM 100 MG CAP PO SCH (12:02)
--- NOTE | 2024-02-21 12:41 | XRay Report ---
SINGLE VIEW PELVIS; SINGLE VIEW LEFT HIP CLINICAL HISTORY: Postoperative examination. FINDINGS: An AP portable view of the hips and pelvis with a crosstable lateral portable view of the l eft hip are compared to study dated 01/16/2024. A bipolar left hip arthroplasty is in near-anatomic al ignment. At least 2 cortical lag screws transfix the acetabular cup. No acute fracture is identified. There are expected postoperative changes overlying the left hip including skin clips, subcutaneous g as, and soft tissue swelling. Moderate arthritic change is seen in the right hip. Phleboliths are not ed in the pelvis. IMPRESSION: Expected postoperative findings status post left hip arthroplasty. No acute fracture is s een. ACT 112: Negative or not required by law. Electronically signed by: Deandre Jeff M.D. 02/21/2024 12:40 PM
[2024-02-21] MEDS: TRANEXAMIC ACID / 0.7% NACL 1,000 MG/100 ML BAG IV SCH (13:43)
[2024-02-21] MEDS: traMADol HCL 50 MG TABLET PO PRN (14:02)
[2024-02-21] MEDS: ASCORBIC ACID 500 MG TAB PO SCH (17:09)
[2024-02-22 03:07] VITALS: TEMP 97.7
[2024-02-22 06:23] VITALS: BP 146/77; PULSE 65; RESP 15; O2SAT 95
[2024-02-22 06:31] LABS: Basophils # (auto) 0.04 K/uL (0.00-0.20); Basophils % (auto) 0.6 %; Eosinophils # (auto) 0.07 K/uL (0.00-0.50); Eosinophils % (auto) 1.1 %; Hematocrit (blood only) 34.6 % (37.0-47.0); Hemoglobin 11.4 g/dl (12.0-16.0); Immature Granulocytes # (auto) 0.03 K/uL (0.01-0.20); Immature Granulocytes % (auto) 0.5 %; Lymphocytes # (auto) 0.92 K/uL (1.20-3.40); Lymphocytes % (auto) 14.3 %; Mean Corpuscular Hemoglobin 32.4 pg (25.0-34.0); Mean Corpuscular Hgb Conc 32.9 g/dL (32.0-36.0); Mean Corpuscular Volume 98.3 fL (80.0-100.0); Mean Platelet Volume 11.2 fL (9.4-12.4); Monocytes # (auto) 0.74 K/uL (0.11-0.59); Monocytes % (auto) 11.5 %; Neutrophils # (auto) 4.64 K/uL (1.40-6.50); Platelet Count 169 K/uL (130-400); RDW Coefficient of Variation 12.9 % (11.5-14.5); RDW Standard Deviation 46.3 fL (36.4-46.3); Red Blood Count 3.52 M/uL (4.20-5.40); White Blood Count 6.44 K/ul (4.8-10.8)
[2024-02-22 07:08] LABS: BUN Creatinine Ratio 15.4 (10-20); Calcium 8.6 mg/dl (8.6-10.3); Creatinine Clr Calc Pharmacy 91.8 ml/min; Potassium 4.4 mmol/L (3.5-5.1)
--- NOTE | 2024-02-22 07:33 | Orthopedic Progress Note ---
Date of Service February 22, 2024 Assessment & Plan (1) Status post left hip replacement: Plan: 68-year-old female postop day 1 from left hip replacement doing pretty well. Pains controlled. Hips located. She is neurologically intact. Plan: 1. DVT prophylaxis including thigh-high teds, SCDs, aspirin twice a day. 2. PT/OT. Weight-bear as tolerated. Left total hip protocol. 3. Pain control. Doing pretty well with current pain regimen. 4. Wound care. She is got a Prevena VAC dressing in place and that will stay on for 1 week. 5. Disposition. She is hoping to go home. She has a sisters can assist in her care. Will have home health set up. Will see how she does in therapy today. (2) Hypothyroidism: (3) Hypercholesterolemia: (4) History of bilateral knee replacement: (5) Non-alcoholic fatty liver disease: Admission and Anticipated Discharge Date Admission Date: February 21, 2024 Subjective 68-year-old female postop day 1 from a left hip replacement. She is doing pretty well this morning. Not much pain at all while in bed. Having little trouble lifting her leg. No chest pain or shortness of breath. Not feeling dizzy or lightheaded. She is hoping to go home. Physical Exam Physical Exam: Physical exam shows a pleasant middle-age female. That she is lying in bed looks pretty comfortable. Examination left hip reveals the Prevena VAC dressing be in place. Leg lengths are equal. Thigh is soft and supple. That she can dorsiflex and plantarflex her foot appropriately. She is neurologically intact. Hips located. Respiratory: normal respiratory effort, lungs clear to auscultation Cardiovascular: RRR, no murmur, no edema Gastrointestinal (Abdomen): normal bowel sounds, soft, nontender, no hep atosplenomegaly Results & Data Vital Signs (Past 12 Hours) Vital Signs Temp Pulse Resp BP Pulse Ox O2 Del Method 02/22/24 06:22 36.5 C 65 15 146/77 H 95 Room Air 02/22/24 03:06 36.5 C 60 16 118/77 97 Room Air 02/21/24 23:00 36.7 C 66 16 103/66 98 Room Air Laboratory Results Hemoglobin is 11.4. Hematocrit is 34.6. Electrolytes are stable.
[2024-02-22] MEDS: dexAMETHasone 10 MG in SYRINGE 0 ML IV SCH (08:26)
--- NOTE | 2024-02-24 09:49 | Discharge Summary ---
Date of Service February 24, 2024 Admission HPI (Per Admitting) . The patient is a 5-year-old female well-known to me from previous bilateral knee replacements done about 7 years ago. They were done about 8 months apart. She is done pretty well from this. Over the past year she developed increased pain discomfort left hip and groin area. She was referred to pain clinic. They did an MRI of the hip which shows significant arthritis. She now presents was for surgical treatment. Scribes groin pain thigh pain. She is actually resorted to using a cane for the past several months. She also has some buttock pain. She limps more as the day goes on. She just like to get her hip fixed. She does have some back pain. No radicular symptoms. Admission Exam (Per Admitting) . Physical examination reveals a pleasant middle-age female. Looks to be in reasonably good health. Examination of left hip and leg reveal patient walks with use of a cane. She limps on the left side. Leg lengths appear pretty equal. She does have pain with any type of hip motion. Her motion is pretty decent with internal rotation to 10 degrees. This does recreate pain. Negative straight leg raise. She is neurologically intact. Principal Diagnosis Same as "Discharge Diagnosis" noted below under Discharge Instructions. Discharge Data Procedures Performed Operation Date: 02/21/24 07:00 Actual Procedures p Left Total Hip Arthroplasty, Uncemented(Left) - Danielito Frankel MD Hospital Course (1) Status post left hip replacement: This is a 68 year old patient admitted on 02/21/24 and underwent total hip arthroplasty. She tolerated the procedure well and there were no complications. Transferred to the PACU post op and later to the orthopedic floor for further care. She was given ancef for antibiotic prophylaxis. She was also given ANTONIETTA stockings, SCDs, and aspirin for DVT prophylaxis. Hemoglobin, hematocrit, and vital signs were monitored during her hospital stay and remained stable. Did not require any blood transfusions. There were no complications during her hospital stay. By post op day #1 the patient was tolerating a regular diet, pain was reasonably controlled with oral pain medicine, and she was participating in physical the rapy. On post op day #1 the patient was discharged home and set up with home health care. She was given printed discharge instructions including prescriptions for extra strength tylenol, aspirin, ketorolac, zofran, senokot, and tramadol. Continue hip precautions. Continue physical therapy, weight bearing as tolerated. Continue ANTONIETTA stockings. Follow up approximately 2 weeks post op or sooner if there are problems or concerns. Discharge Plan Discharge Items Patient Disposition: Home - Home Health Services Reason For Visit: Left Hip Arthritis Discharge Diagnosis: Left Hip Replacement Activity: Per Instructions section Activity Comment: Follow/Obey hip precautions at all times. Weightbearing: Full weightbearing Weightbearing Comment: Weightbear as tolerated obeying hip precautions at all times. Non-emergency contact: Surgeon Call non-emergency contact if: you have any medication questions Follow-up/Referrals: Anders Severino MD [Primary Care Provider] - Diet: Regular Addtl Attending Provider Instructions: ACTIVITY RECOMMENDATIONS: Diet: * You may resume previous diet. Physical Therapy: * Aggressive physical therapy is not usually needed. You will learn to take care of yourself safely and walk. * Follow the "Hip Precautions Instructions." * In some cases, the nephrology social worker at the hospital will arrange to have a therapist come to your house for the first couple of weeks to help you learn these skills. * You need to practice on your own or with the help of a family member as needed. * When you learn these skills, most of the therapy can be done on your own. Home Exercise: * You were shown a series of exercises in the hospital. Do these exercises three to four times each day including the exercises you were shown in physical therapy. Walking: * Get up and walk several times each day. For the first four weeks, try not to stand or walk for more than one hour at a time. If you do stand or walk for more than one hour, you will not hurt anything, but your leg will likely swell. * As you feel comfortable, you may change from the walker or crutches to a cane and then to independent walking. MEDICATIONS: New Medicine: * You will likely be taking one or more of these medicines: 1. Tramadol - Take, as directed, when you need it, every six hours to control your pain. 2. Aspirin - Thins your blood to lessen the chance of forming a blood clot. * The most common side effects of pain medicine and iron are nausea and constipation. If nausea or constipation is too much of a problem or if you have any questions about your new medicines or doses, call [facility] at . We will try to help you manage these issues. "VERY IMPORTANT TO READ AND REVIEW" Pain: * The immediate post-operative period after hip replacement surgery is often quite painful. * You are given a prescription for pain medicine. You should take it, as directed, when you need it, especially before physical therapy and before going to bed. Pain that interferes with sleep is very common and can last several months. * You will likely need pain medicine for the first two to four weeks. It will not stop all of the pain. The pain will lessen and as you feel better, you may change to milder pain medicine such as Tylenol. * The most common side effects of pain medicine are nausea and constipation, so don't take more than you need. SPECIAL CARE INSTRUCTIONS: TEDs/Elastic Stockings: * The white elastic stockings help limit swelling and prevent blood clots from forming in your legs. The more you wear them, the more they work. * Wear them for six weeks. Incision Site Care: * Remove dressing postoperative day 7. Keep direct shower pressure off the incision site. * After showering, cover carlos with dry gauze and change daily or more frequently if the dressing is getting saturated with drainage. * May completely stop using bandage if wound is dry and no drainage * [place] are removed between 2 and 3 weeks post-op. If your follow-up appointment is made before 2 weeks, please have your appointment re- scheduled. It is too early to remove the carlos. Prevention of Infection: * Take antibiotics one hour before any dental cleaning, dental work, urological procedure, gastrointestinal procedure or any invasive surgery in order to prevent your new joint from getting infected. * You may get the antibiotics from the doctor performing the procedure or you may call our office at before and we will call in a prescription to the pharmacy of your choice. Things to Watch For: * Drainage from the incision site that occurs more than one week after your surgery. * Severely increased leg pain or swelling. * Increased redness at the incision site. * Fever above 102 degrees Fahrenheit. * Unusual chest pain or shortness of breath. * Unusual pain or burning with urination. Call [facility] at with any of the above problems or if you have any questions about your medicines or recovery. FOLLOW UP VISIT: Make an appointment to see your doctor for approximately two weeks after surgery for a progress check and staple removal by calling the office at . Pending Studies at Discharge: No Stand-Alone Forms: My [facility], Smoking Cessation Medications and DC Order Prescriptions: Continued tramadol 50 mg tablet 50 - 100 mg PO Q6 PRN (Reason: pain) Qty: 40 0RF Rx Instructions: Take as needed for pain ondansetron 4 mg tablet,disintegrating 4 mg PO Q8 PRN (Reason: nausea) Qty: 20 1RF Rx Instructions: Take as needed for nausea ketorolac 10 mg tablet 10 mg PO Q6 5 Days Qty: 20 0RF Rx Instructions: Take 4 times per day with food for 5 days to lessen pain and swelling. sennosides [Senokot] 8.6 mg tablet 8.6 mg PO BID 14 Days Qty: 28 0RF Rx Instructions: Take two times a day to prevent/treat constipation acetaminophen [Tylenol Extra Strength] 500 mg tablet 1,000 mg PO TID 30 Days Qty: 180 0RF Rx Instructions: Take 3 times per day to lessen pain. aspirin [Nasima Low Dose Aspirin] 81 mg tablet,delayed release (DR/EC) 81 mg PO BID 45 Days Qty: 90 0RF Rx Instructions: Take to prevent blood clots. levothyroxine [Synthroid] 50 mcg tablet 50 mcg PO QAM Qty: 90 3RF Adult Probiotic 3 billion cell capsule 3,000 mmu cells PO DAILY ascorbic acid (vitamin C) 1,000 mg tablet 5 g PO DAILY multivitamin [Daily Multi-Vitamin] Tablet 1 tab PO DAILY amoxicillin 500 mg tablet 2,000 mg PO UD PRN (Reason: dental procedures) Rx Instructions: TAKE 4 TABLETS ONE HOUR PRIOR TO DENTAL WORK Krames/Other Patient Handouts: Hip Precautions, After Hip Replacement: Home Safety Admission Data Admit Date/Time: 02/21/24 08:40 Attending Provider: Danielito Frankel Admit Provider: Danielito Frankel Primary Care Provider: Anders Severino Other Providers: [facility],Home [facility] Other Interventions: Discharge Summary Assessment (RN) Last Done: 02/22/24 09:12
== END 2024-02-22 11:46 | disposition home health service (06) ==
LOC: ASU 05:03 → 3E 05:03